=== PATIENT | female | born 1950 | race American Indian/Alaskan Native ===

== ENCOUNTER 2017-06-22 07:38 | Outpatient (CLI) | payer MEDICARE ==
[2017-06-22 08:20] LABS: Blood Urea Nitrogen 20 mg/dL (7-17)
[2017-06-22] MEDS ORDERED: NACL ONE (09:00)
--- NOTE | 2017-06-22 09:57 | Ultrasound Report ---
BILATERAL DIGITAL DIAGNOSTIC MAMMOGRAM with CAD and BILATERAL BREAST ULTRASOUND: 06/22/17 07:38:00 CLINICAL: Left breast and nipple pain for 2 weeks. She describes the pain as being off and on and it has gotten somewhat better. No nipple discharge and no palpable lump. COMPARISON:10/12/16 FINDINGS: The breasts are almost entirely fatty.No mass, architectural distortion or suspicious calcifications. A 5 mm oval circumscribed right outer density is more prominent than on the prior mammogram. Ultrasound of the left breast (including all four quadrants and the retroareolar area) was performed. Mild retroareolar duct ectasia. A 3.5 mm echogenic structure is identified within a 5 mm. The left breast is otherwise negative. Ultrasound of the outer right breast was performed and demonstrated no mass, cyst or a lymph node to correlate with the 5 mm circumscribed density on the mammogram. IMPRESSION: 1. 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 This may also be benign debris within the duct. Recommend a short-term followup ultrasound for reevaluation. 2. No explanation for left breast pain. Recommend consultation with a breast surgeon. 3. Negative right breast. BI-RADS CATEGORY: 3--Probably Benign RECOMMENDATION: A repeat left breast ultrasound in three months to reevaluate duct ectasia and a questionable 3.5 mm intraductal mass. Recommend consultation with a breast surgeon regarding left breast pain. I discussed the findings and my recommendations with the patient at the time of the exam. ACR BI-RADS MAMMOGRAPHIC CODES: 0 = Needs additional imaging evaluation; 1 = Negative; 2 = Benign; 3 = Probably benign; 4 = Suspicious; 5 = Malignant; 6 = Known biopsy-proven malignancy COMMENT: 1. Dense breast tissue, i.e., adenosis, fibrocystic changes, etc., may obscure an underlying neoplasm. 2. Approximately 10% of cancers are not detected with mammography. 3. A negative mammography report should not delay biopsy if a clinically suspicious mass is present. COMMENT: Patient follow-up letters are generated by our [employer] application.
--- NOTE | 2017-06-22 14:10 | Cat Scan Report ---
CT CHEST WITH CONTRAST: HISTORY: Lymphadenopathy. TECHNIQUE: Helical CT following IV contrast. Sagittal and coronal reformatted images. FINDINGS: Heart size is normal. No intrathoracic or extrathoracic adenopathy is detected. Pulmonary ifeanyi are within normal limits. There are 3 or 4 nodular densities in the right apical region measuring up to 8 mm. These appear inflammatory in nature. No spiculated lung mass or parenchymal lung disease is appreciated. No pleural effusion or pneumothorax. The pleura is unremarkable. No masses involve the chest wall. Limited images of the upper abdomen demonstrate 2 cysts in the superior right kidney measuring 2 cm and 3 cm. IMPRESSION: No evidence for lymphadenopathy. Few millimetric nodular densities at the right apex which are most consistent with mild inflammatory change. Consider followup in 3-6 months.
== END 2017-06-22 07:39 | disposition home or self-care (01) ==
LOC: CT 07:38
PROVIDERS: ATTEND Family Medicine
DX: N60.42 Mammary duct ectasia of left breast (principal); N64.4 Mastodynia; N28.1 Cyst of kidney, acquired; I10 Essential (primary) hypertension; E11.9 Type 2 diabetes mellitus without complications
CPT/HCPCS: 36415; 71260; 76642; 82565; 84520; G0206; Q9967

== ENCOUNTER 2018-01-26 09:48 | Outpatient (CLI) | payer OTHER, MEDICARE ==
[2018-01-26 10:28] LABS: Blood Urea Nitrogen 17 mg/dL (7-17)
--- NOTE | 2018-01-26 14:58 | Cat Scan Report ---
CT CHEST WITH CONTRAST INDICATION: Abnormal CT of chest. COMPARISON: 06/22/2017. FINDINGS: Chest CT performed following intravenous administration of 100 cc of Omnipaque 300. Unremarkable heart and great vessels. No effusions or new lymphadenopathy with stable small subcarinal lymph node calcifications and slight bilateral hilar lymphoid prominence. Patent central airway. No axillary lymphadenopathy. Normal thyroid. Stable lungs, including few small bilateral upper lobe noncalcified nodular densities as on axial series 2, images 20-38, the largest approximately 6 mm, axial image 26 and most likely chronic inflammatory/scarring. Small right distal paraesophageal calcified lymph node is stable. Nonspecific distal esophageal wall prominence/thickening, not excluded for gastroesophageal reflux and/or hiatal hernia, amongst others. Imaged upper abdomen again demonstrates right renal cysts measuring up to 2.4 cm. Mild multilevel spinal degenerative changes as spurring. CONCLUSION: No acute chest CT abnormality or significant interval change with few incidental findings, as above. Subcentimeter upper lobe nodular densities again felt chronic/inflammatory in this patient with old healed granulomatous disease. Followup CT in approximately 12 months may be considered towards its two-year surveillance, as appropriate. Alternatively, direct comparison with more remote imaging, if available, would be very helpful to reassure stability and avoid further followup. Thank you for the opportunity to participate in this patient's care.
--- NOTE | 2018-01-26 16:33 | Ultrasound Report ---
LEFT BREAST ULTRASOUND: 01/26/18 09:48:00 CLINICAL: Followup retroareolar duct ectasia. COMPARISON: 09/26/17 and 06/22/17 FINDINGS: Ultrasound of the retroareolar left breast was performed and demonstrated stable mild persistent duct ectasia with no intraductal mass or intraductal debris. No mass, cyst or shadowing. IMPRESSION: Benign mammary duct ectasia. BI-RADS 2 - - Benign RECOMMENDATION: Clinical followup and routine mammographic screening.
== END 2018-01-26 09:49 | disposition home or self-care (01) ==
LOC: CT 09:48
PROVIDERS: ATTEND Family Medicine
DX: N60.42 Mammary duct ectasia of left breast (principal); N28.1 Cyst of kidney, acquired; M47.894 Other spondylosis, thoracic region; R93.8 Abnormal findings on diagnostic imaging of other specified body structures
CPT/HCPCS: 36415; 71260; 76642; 82565; 84520; Q9967

== ENCOUNTER 2018-11-29 08:26 | Outpatient (CLI) | payer OTHER, MEDICARE ==
--- NOTE | 2018-11-29 11:39 | Mammography Report ---
BILATERAL DIGITAL SCREENING MAMMOGRAM with CAD: 11/29/18 08:26:00 CLINICAL: Routine screening. COMPARISON:06/22/17 FINDINGS: The breasts are mostly fatty a few bilateral scattered fibroglandular densities. No mass, architectural distortion or suspicious calcifications. IMPRESSION: No mammographic evidence of malignancy. BI-RADS CATEGORY: 1 - - Negative RECOMMENDATION: Routine mammographic screening in one year. COMMENT: Patient follow-up letters are generated by our [employer] application.
== END 2018-11-29 08:27 | disposition home or self-care (01) ==
LOC: MAMMO 08:26
PROVIDERS: ATTEND Family Medicine
DX: Z12.31 Encounter for screening mammogram for malignant neoplasm of breast (principal); E11.21 Type 2 diabetes mellitus with diabetic nephropathy; Z88.2 Allergy status to sulfonamides; Z87.891 Personal history of nicotine dependence
CPT/HCPCS: 77067